=== PATIENT | male | born 1985 | race African-American/Black ===

== ENCOUNTER 2020-12-12 02:09 | Emergency (ER) | payer OTHER ==
[2020-12-12] MEDS ORDERED: Ketorolac Tromethamine 30 MG/ML VIAL ONE (02:31)
[2020-12-12 02:44] LABS: #Basophils 0.1 thou/uL (0.0-0.2); #Eosinphils 0.1 thou/uL (0.0-0.7); #Lymphocytes 2.8 thou/uL (1.20-3.40); #Monocytes 0.6 thou/uL (0.11-0.59); #Neutrophils 8.2 thou/uL (1.40-6.50); %Basophils 0.6 % (0.0-1.0); %Eosinophils 0.9 % (0.0-10.0); %Lymphocytes 23.4 % (21.0-51.0); %Monocytes 5.4 % (0.0-10.0); %Neutrophils 69.7 % (42.0-75.0); Hemoglobin 16.4 g/dL (14.0-18.0); Mean Corpuscular HGB CONC 33.5 g/dL (32.0-36.0); Mean Corpuscular Hemoglobin 27.8 pg (27.0-31.0); Mean Corpuscular Volume 83.1 fL (78.0-98.0); Mean Platelet Volume 8.3 fL (7.4-10.4); Platelet Count 260 thou/uL (130-400); RBC Distribution Width 12.3 % (11.5-14.5); Red Blood Cell (RBC) Count 5.88 mill/uL (4.70-6.10); White Blood Cell (WBC) Count 11.7 thou/uL (4.8-10.8)
[2020-12-12 03:06] LABS: ALT (SGPT) 12 U/L (8-55); AST (SGOT) 12 U/L (5-34); Alkaline Phosphatase 118 U/L (40-110); Anion Gap 18 mmol/L (10-20); BUN (Urea Nitrogen) 17 mg/dL (8.9-20.6); Bilirubin, Total 0.8 mg/dL (0.2-1.2); Calc. Creatinine Clearance 0 mL/min (70-130); Carbon Dioxide 26 mmol/L (22-29); Chloride 95 mmol/L (98-107); Globulin 3.7 g/dL (2.4-3.5); Glucose 444 mg/dL (70-105); Potassium 3.3 mmol/L (3.5-5.1); Protein, Total 7.7 g/dL (6.0-8.3); Sodium 136 mmol/L (136-145)
[2020-12-12] MEDS ORDERED: Bupivacaine 0.5% 10 ML VIAL ONE (03:27)
== END 2020-12-12 05:06 | disposition home or self-care (01) ==
LOC: ERS 02:09
DX: S92.322A Displaced fracture of second metatarsal bone, left foot, initial encounter for closed fracture (principal); S92.332A Displaced fracture of third metatarsal bone, left foot, initial encounter for closed fracture; S92.342A Displaced fracture of fourth metatarsal bone, left foot, initial encounter for closed fracture; E10.9 Type 1 diabetes mellitus without complications; F17.210 Nicotine dependence, cigarettes, uncomplicated; Z79.899 Other long term (current) drug therapy; V03.90XA Pedestrian on foot injured in collision with car, pick-up truck or van, unspecified whether traffic or nontraffic accident, initial encounter
CPT/HCPCS: 28475; 36415; 71045; 72170; 80053; 84484; 85025; 93005; 96374; J1885; J3490

== ENCOUNTER 2020-12-21 14:46 | Outpatient (CLI) | payer SELFPAY ==
[2020-12-22 05:52] LABS: SARS-CoV-2 PCR by NAA Not Detected (NotDetected)
== END 2020-12-21 14:47 | disposition home or self-care (01) ==
LOC: LABBT 14:46
PROVIDERS: ATTEND Orthopaedic Surgery
DX: Z01.812 Encounter for preprocedural laboratory examination (principal); S93.326A Dislocation of tarsometatarsal joint of unspecified foot, initial encounter; Z20.822 Contact with and (suspected) exposure to COVID-19
CPT/HCPCS: 87635; U0003; U0005

== ENCOUNTER 2020-12-23 10:45 | Observation (INO) | payer OTHER, SELFPAY ==
[2020-12-22 09:57] VITALS: BMI 25.7
[2020-12-23] MEDS ORDERED: Midazolam HCl 2 mg/2 ml Vial ONE (12:19)
[2020-12-23] MEDS ORDERED: Fentanyl 100 MCG/2 ML VIAL ONE (12:19)
[2020-12-23] MEDS ORDERED: Labetalol HCl 100 MG/20 ML VIAL ONE (12:48)
[2020-12-23] MEDS ORDERED: Dextrose 5% in Water 1,000 ML IV PRN (15:15)
[2020-12-23] MEDS ORDERED: Dextrose 50% Abboject 50 ML SYRINGE SLOW IVP PRN (15:15)
[2020-12-23] MEDS ORDERED: HumaLOG 300 UNITS/3 ML VIAL SC PRN ×2 (15:15)
[2020-12-23] MEDS: hydrALAZINE 20 MG/ML VIAL SLOW IVP PRN ×2 (15:40→16:03)
[2020-12-23] MEDS ORDERED: hydrALAZINE 20 MG/ML VIAL SLOW IVP PRN (16:43)
[2020-12-23] MEDS: Carvedilol 6.25 MG TAB PO SCH (20:53)
[2020-12-23] MEDS: Atorvastatin Calcium 40 MG TAB PO SCH (20:53)
[2020-12-23] MEDS: HumuLIN 70/30 (300 UNITS/3 ML VIAL) SC SCH (21:56)
[2020-12-24] MEDS ORDERED: diphenhydrAMINE 25 MG CAP PO PRN (00:30)
[2020-12-24] MEDS ORDERED: Fluticasone Propionate Nasal Spray 16 gm Bottle NASAL PRN (00:30)
[2020-12-24] MEDS ORDERED: CEFAZOLIN 2 GM in Premix Bag 1 BAG IVPB SCH ×4 (07:00→21:00)
[2020-12-24] MEDS: Carvedilol 6.25 MG TAB PO SCH ×2 (08:37→19:50)
[2020-12-24] MEDS ORDERED: Lantus 1000 UNITS/10 ML VIAL SC SCH ×2 (09:00)
[2020-12-24] MEDS ORDERED: HumuLIN 70/30 (300 UNITS/3 ML VIAL) SC SCH (09:00)
[2020-12-24] MEDS ORDERED: Amlodipine 10 MG TAB PO SCH (09:00)
[2020-12-24] MEDS ORDERED: Ondansetron PF 4 MG/2 ML Vial ONE (12:39)
[2020-12-24] MEDS ORDERED: PHENYLEPHRINE-NS 100 MCG/ML 10 ML SYRINGE ONE (12:39)
[2020-12-24] MEDS ORDERED: PROPOFOL 200 MG/20 ML VIAL ONE (12:39)
[2020-12-24] MEDS ORDERED: Lidocaine 1% PF 5 ML VIAL ONE (12:39)
[2020-12-24] MEDS ORDERED: diphenhydrAMINE 50 MG/ML VIAL ONE (12:39)
[2020-12-24] MEDS ORDERED: Fentanyl 100 MCG/2 ML VIAL ONE ×2 (13:02→15:34)
[2020-12-24] MEDS ORDERED: Bupivacaine PF 0.5% 30 ML VIAL ONE (13:04)
[2020-12-24] MEDS ORDERED: hydrALAZINE 20 MG/ML VIAL ONE (15:20)
[2020-12-24 17:24] VITALS: TEMP 98
[2020-12-24] MEDS ORDERED: Acetaminophen 325 MG TAB PO SCH (18:45)
[2020-12-24 19:49] VITALS: BP 158/100
[2020-12-24] MEDS: Atorvastatin Calcium 40 MG TAB PO SCH (19:50)
[2020-12-24] MEDS: HumuLIN 70/30 (300 UNITS/3 ML VIAL) SC SCH (19:57)
== END 2020-12-24 21:45 | disposition home or self-care (01) ==
LOC: SDC 10:45 → SURG A 12:49 → SJJU 15:11
PROVIDERS: ADMIT Orthopaedic Surgery; ATTEND Orthopaedic Surgery
PROC: 0QSP04Z Reposition Left Metatarsal with Internal Fixation Device, Open Approach (ICD-10-PCS; principal; 2020-12-24)
DX: S93.325A Dislocation of tarsometatarsal joint of left foot, initial encounter (principal); I10 Essential (primary) hypertension; E10.319 Type 1 diabetes mellitus with unspecified diabetic retinopathy without macular edema; E78.00 Pure hypercholesterolemia, unspecified; E78.5 Hyperlipidemia, unspecified; F17.210 Nicotine dependence, cigarettes, uncomplicated; Z79.4 Long term (current) use of insulin; Z79.899 Other long term (current) drug therapy
CPT/HCPCS: 36416; 76000; 96374; 96375; 96376; C1713; G0378; J0360; J0690; J1200; J1815; J2250; J2405; J2704; J3010; Q0163; S0020

== ENCOUNTER 2021-08-02 12:28 | Emergency (ER) | payer MEDICARE, SELFPAY ==
[2021-08-02 14:10] LABS: #Basophils 0.1 thou/uL (0.0-0.2); #Eosinphils 0.2 thou/uL (0.0-0.7); #Lymphocytes 2.6 thou/uL (1.20-3.40); #Monocytes 0.7 thou/uL (0.11-0.59); #Neutrophils 5.6 thou/uL (1.40-6.50); %Basophils 0.7 % (0.0-1.0); %Eosinophils 1.7 % (0.0-10.0); %Lymphocytes 28.5 % (21.0-51.0); %Monocytes 7.3 % (0.0-10.0); %Neutrophils 61.7 % (42.0-75.0); Hemoglobin 16.4 g/dL (14.0-18.0); Mean Corpuscular HGB CONC 31.8 g/dL (32.0-36.0); Mean Corpuscular Hemoglobin 26.9 pg (27.0-31.0); Mean Corpuscular Volume 84.7 fL (78.0-98.0); Mean Platelet Volume 7.7 fL (7.4-10.4); Platelet Count 294 thou/uL (130-400); RBC Distribution Width 12.8 % (11.5-14.5)
[2021-08-02 14:35] LABS: ALT (SGPT) 9 U/L (8-55); AST (SGOT) 12 U/L (5-34); Albumin 3.8 g/dL (3.5-5.0); Alkaline Phosphatase 115 U/L (40-110); Anion Gap 13 mmol/L (10-20); BUN (Urea Nitrogen) 12 mg/dL (8.9-20.6); Bilirubin, Total 1.1 mg/dL (0.2-1.2); Calc. Creatinine Clearance 0 mL/min (70-130); Calcium 9.8 mg/dL (7.8-10.44); Carbon Dioxide 30 mmol/L (22-29); Chloride 100 mmol/L (98-107); Globulin 3.8 g/dL (2.4-3.5); Glucose 263 mg/dL (70-105); Potassium 4.6 mmol/L (3.5-5.1); Protein, Total 7.6 g/dL (6.0-8.3); Sodium 138 mmol/L (136-145)
== END 2021-08-02 16:52 | disposition home or self-care (01) ==
LOC: ERS 12:28
DX: I10 Essential (primary) hypertension (principal)
CPT/HCPCS: 36415; 71045; 80053; 84484; 85025; 93005

== ENCOUNTER 2022-02-04 09:21 | Inpatient (IN) | payer MEDICARE, MEDICAID ==
[2022-02-04 09:54] LABS: Actual Bicarbonate (HCO3v) 26 mEq/L (22-28); Analyzer IN Cardio ER; Base Excess 1.6 mEq/L (-2.0 to +3.0); Calcium, Ionized (venous) 0.99 mmol/L (1.16-1.32); Chloride (VBG) 100 mmol/L (98-106); Potassium (VBG) 4.41 mmol/L (3.70-5.30); Sodium 134.6 mmol/L (133-146); pH (venous) 7.44 (7.32-7.43)
[2022-02-04 09:57] LABS: #Basophils 0.1 thou/uL (0.0-0.2); #Eosinphils 0.2 thou/uL (0.0-0.7); #Lymphocytes 2.7 thou/uL (1.20-3.40); #Monocytes 0.8 thou/uL (0.11-0.59); #Neutrophils 5.9 thou/uL (1.40-6.50); %Basophils 0.9 % (0.0-1.0); %Eosinophils 1.8 % (0.0-10.0); %Lymphocytes 27.9 % (21.0-51.0); %Monocytes 8.1 % (0.0-10.0); %Neutrophils 61.2 % (42.0-75.0); Hemoglobin 15.9 g/dL (14.0-18.0); Mean Corpuscular HGB CONC 31.8 g/dL (32.0-36.0); Mean Platelet Volume 7.7 fL (7.4-10.4); Platelet Count 268 thou/uL (130-400); RBC Distribution Width 12.3 % (11.5-14.5); Red Blood Cell (RBC) Count 5.87 mill/uL (4.70-6.10); White Blood Cell (WBC) Count 9.6 thou/uL (4.8-10.8)
[2022-02-04 10:01] LABS: INR-International Normal Ratio 0.9; Prothrombin Time 11.9 sec (12.0-14.7)
[2022-02-04 10:02] LABS: PTT 29.2 sec (22.9-36.1)
[2022-02-04 10:16] LABS: Acetaminophen Less than 10.0 mcg/mL (10.0-30.0); Alcohol Less than 10 mg/dL (Less than 10); Salicylate Less than 8.0 mg/dL (15.0-30.0)
[2022-02-04 10:18] LABS: ALT (SGPT) 9 U/L (8-55); AST (SGOT) 14 U/L (5-34); Alkaline Phosphatase 99 U/L (40-110); Anion Gap 15 mmol/L (10-20); BUN (Urea Nitrogen) 18 mg/dL (8.9-20.6); Bilirubin, Total 1.5 mg/dL (0.2-1.2); Calc. Creatinine Clearance 0 mL/min (70-130); Calcium 9.5 mg/dL (7.8-10.44); Carbon Dioxide 26 mmol/L (22-29); Chloride 100 mmol/L (98-107); Globulin 3.8 g/dL (2.4-3.5); Glucose 236 mg/dL (70-105); Potassium 4.5 mmol/L (3.5-5.1); Protein, Total 7.8 g/dL (6.0-8.3); Sodium 136 mmol/L (136-145)
[2022-02-04 12:25] LABS: Amphetamine Not Detected (NotDetected); Barbiturates Screen Not Detected (NotDetected); Benzodiazepine Screen Not Detected (NotDetected); Cocaine Metabolite Screen Not Detected (NotDetected); Methadone Not Detected (NotDetected); Methamphetamine Not Detected (NotDetected); Opiate Screen Not Detected (NotDetected); Oxycodone Screen Not Detected (NotDetected); Phencyclidine (PCP) Not Detected (NotDetected); THC/Cannabinoid Screen Detected (NotDetected); Tricyclic Screen Not Detected (NotDetected)
[2022-02-04 13:04] LABS: Hemoglobin A1c 12.6 % (4.0-6.0)
[2022-02-04 13:12] LABS: Cardiac Risk 5.3 (Less than 4.5)
[2022-02-04 13:36] LABS: Bacteria/HPF None Seen HPF (None Seen); Bilirubin Negative (Negative); Blood, Urine 1+ (Negative); Clarity Clear (Clear); Glucose, Urine (Dipstick) 300 mg/dL (Negative); Ketone, Urine Negative (Negative); Leukocyte Negative Leu/uL (Negative); Nitrite Negative (Negative); Protein, Urine (Dipstick) 100 mg/dL (Neg-Trace); Squamous Epithelial None Seen HPF (0-3); Urobilinogen Normal mg/dL (Less than 2); WBC/HPF 0-3 HPF (0-3); pH, Urine 7.5 (5.0-9.0)
[2022-02-04 14:35] LABS: Troponin I Less than 0.010 ng/mL (< 0.028)
[2022-02-04 15:52] VITALS: BMI 24.6
[2022-02-04 16:48] LABS: Troponin I Less than 0.010 ng/mL (< 0.028)
[2022-02-04] MEDS: Sodium Chloride 0.9% 1,000 ML IV SCH ×2 (17:16→20:59)
[2022-02-04 23:57] LABS: SARS-CoV-2 PCR by NAA Not Detected (NotDetected)
[2022-02-05 05:48] LABS: Anion Gap 12 mmol/L (10-20); BUN (Urea Nitrogen) 12 mg/dL (8.9-20.6); Calc. Creatinine Clearance 66 mL/min (70-130); Calcium 8.9 mg/dL (7.8-10.44); Carbon Dioxide 24 mmol/L (22-29); Chloride 105 mmol/L (98-107); Glucose 175 mg/dL (70-105); Potassium 3.8 mmol/L (3.5-5.1); Sodium 137 mmol/L (136-145)
[2022-02-05] MEDS: Chlorthalidone 25 MG TAB PO SCH (10:34)
[2022-02-05] MEDS: Aspirin Chewable 81 MG TAB PO SCH (10:34)
[2022-02-05] MEDS: Atorvastatin Calcium 40 MG TAB PO SCH (10:34)
[2022-02-05] MEDS: HumuLIN 70/30 (300 UNITS/3 ML VIAL) SC SCH ×2 (10:35→21:44)
[2022-02-05] MEDS: Amlodipine 10 MG TAB PO SCH (10:35)
[2022-02-05] MEDS: Carvedilol 6.25 MG TAB PO SCH ×2 (10:35→21:43)
[2022-02-05] MEDS ORDERED: NPH, Human Insulin Isophane 300 UNIT/3 ML VIAL SC SCH (21:00)
[2022-02-06 05:55] LABS: Anion Gap 16 mmol/L (10-20); BUN (Urea Nitrogen) 17 mg/dL (8.9-20.6); Calc. Creatinine Clearance 54 mL/min (70-130); Calcium 9.8 mg/dL (7.8-10.44); Carbon Dioxide 24 mmol/L (22-29); Chloride 101 mmol/L (98-107); Glucose 161 mg/dL (70-105); Potassium 3.5 mmol/L (3.5-5.1); Sodium 137 mmol/L (136-145)
[2022-02-06] MEDS: Aspirin Chewable 81 MG TAB PO SCH (08:07)
[2022-02-06] MEDS ORDERED: Aspirin 325 MG TAB PO SCH (08:15)
[2022-02-06] MEDS: HumuLIN 70/30 (300 UNITS/3 ML VIAL) SC SCH ×2 (08:34→21:09)
[2022-02-06] MEDS: Amlodipine 10 MG TAB PO SCH (08:34)
[2022-02-06] MEDS: Carvedilol 6.25 MG TAB PO SCH (08:34)
[2022-02-06] MEDS: Atorvastatin Calcium 40 MG TAB PO SCH (08:34)
[2022-02-06] MEDS: Chlorthalidone 25 MG TAB PO SCH (08:34)
[2022-02-06] MEDS ORDERED: HumaLOG 300 UNITS/3 ML VIAL SC PRN (14:15)
[2022-02-06] MEDS ORDERED: Dextrose 5% in Water 1,000 ML IV PRN (14:15)
[2022-02-06] MEDS ORDERED: Dextrose 50% Abboject 50 ML SYRINGE SLOW IVP PRN (14:15)
[2022-02-06] MEDS: Carvedilol 25 MG TAB PO SCH (17:33)
[2022-02-06] MEDS: HumaLOG 300 UNITS/3 ML VIAL SC PRN (17:33)
[2022-02-07] MEDS: HumaLOG 300 UNITS/3 ML VIAL SC PRN (06:13)
[2022-02-07] MEDS: Carvedilol 25 MG TAB PO SCH ×2 (07:56→16:02)
[2022-02-07] MEDS: Amlodipine 10 MG TAB PO SCH (08:02)
[2022-02-07] MEDS: Chlorthalidone 25 MG TAB PO SCH (08:02)
[2022-02-07] MEDS: Atorvastatin Calcium 40 MG TAB PO SCH (08:02)
[2022-02-07] MEDS: Aspirin Chewable 81 MG TAB PO SCH (08:02)
[2022-02-07] MEDS: HumuLIN 70/30 (300 UNITS/3 ML VIAL) SC SCH ×2 (08:07→21:00)
[2022-02-07] MEDS ORDERED: hydrALAZINE 20 MG/ML VIAL SLOW IVP PRN (16:38)
[2022-02-08 05:26] LABS: ALT (SGPT) 9 U/L (8-55); AST (SGOT) 12 U/L (5-34); Albumin 3.5 g/dL (3.5-5.0); Alkaline Phosphatase 83 U/L (40-110); Anion Gap 12 mmol/L (10-20); BUN (Urea Nitrogen) 28 mg/dL (8.9-20.6); Bilirubin, Total 0.8 mg/dL (0.2-1.2); Calc. Creatinine Clearance 46 mL/min (70-130); Carbon Dioxide 25 mmol/L (22-29); Chloride 104 mmol/L (98-107); Globulin 3.2 g/dL (2.4-3.5); Glucose 190 mg/dL (70-105); Potassium 4.2 mmol/L (3.5-5.1); Protein, Total 6.7 g/dL (6.0-8.3); Sodium 137 mmol/L (136-145)
[2022-02-08] MEDS: HumaLOG 300 UNITS/3 ML VIAL SC PRN ×2 (05:28→09:01)
[2022-02-08 05:48] LABS: Hemoglobin 14.3 g/dL (14.0-18.0); Mean Corpuscular HGB CONC 33.2 g/dL (32.0-36.0); Mean Corpuscular Hemoglobin 27.9 pg (27.0-31.0); Mean Corpuscular Volume 84.1 fL (78.0-98.0); Mean Platelet Volume 7.9 fL (7.4-10.4); Platelet Count 297 thou/uL (130-400); RBC Distribution Width 12.5 % (11.5-14.5); Red Blood Cell (RBC) Count 5.14 mill/uL (4.70-6.10)
[2022-02-08 06:10] LABS: Band 1 % (5-11); Eosinophils 1 % (0-10); Lymphocytes 41 % (21-51); MDiff Complete? YES; Monocytes 11 % (0-10); Neutrophil 44 % (42-75); Reactive Lymphocytes 2 % (0-10)
[2022-02-08 08:05] VITALS: TEMP 97
[2022-02-08] MEDS: Aspirin Chewable 81 MG TAB PO SCH (08:58)
[2022-02-08] MEDS: Chlorthalidone 25 MG TAB PO SCH (08:59)
[2022-02-08] MEDS: Amlodipine 10 MG TAB PO SCH (08:59)
[2022-02-08] MEDS: Carvedilol 25 MG TAB PO SCH (09:00)
[2022-02-08] MEDS: HumuLIN 70/30 (300 UNITS/3 ML VIAL) SC SCH (09:02)
[2022-02-08 09:06] VITALS: BP 152/94
[2022-02-08] MEDS ORDERED: Atorvastatin Calcium 40 MG TAB PO SCH (21:00)
== END 2022-02-08 12:15 | disposition home or self-care (01) | DRG 65 ==
LOC: ERS 09:21 → ERHOLD 12:00 → NEURO 13:51
PROVIDERS: ADMIT Internal Medicine; ATTEND Internal Medicine
DX: I63.81 Other cerebral infarction due to occlusion or stenosis of small artery (principal); R29.709 NIHSS score 9; Z20.822 Contact with and (suspected) exposure to COVID-19; I16.1 Hypertensive emergency; G81.94 Hemiplegia, unspecified affecting left nondominant side; E78.5 Hyperlipidemia, unspecified; E10.22 Type 1 diabetes mellitus with diabetic chronic kidney disease; N18.9 Chronic kidney disease, unspecified; I12.9 Hypertensive chronic kidney disease with stage 1 through stage 4 chronic kidney disease, or unspecified chronic kidney disease; H54.40 Blindness, one eye, unspecified eye; E78.00 Pure hypercholesterolemia, unspecified; N18.31 Chronic kidney disease, stage 3a; F17.210 Nicotine dependence, cigarettes, uncomplicated; E10.65 Type 1 diabetes mellitus with hyperglycemia; Z79.899 Other long term (current) drug therapy; Z79.4 Long term (current) use of insulin; Z83.3 Family history of diabetes mellitus; Z28.21 Immunization not carried out because of patient refusal; Z91.14 Patient's other noncompliance with medication regimen; Z86.73 Personal history of transient ischemic attack (TIA), and cerebral infarction without residual deficits
CPT/HCPCS: 36415; 36416; 70450; 70544; 70547; 70551; 71045; 80048; 80053; 80061; 80306; 80307; 81003; 81015; 82805; 83036; 83735; 84484; 85025; 85610; 85730; 93005; 93306; 93880; 96361; 96365; 96366; J0360; J1815; J7050; U0003; U0005